=== PATIENT | female | born 1995 | race Caucasian/White ===

== ENCOUNTER → 2017-07-23 | Outpatient (CLI) | payer BC, OTHER ==
--- NOTE | 2017-07-23 11:30 | DIAGNOSTIC IMAGING REPORT ---
EXAMINATION: PELVIC ULTRASOUND (transabdominal and endovaginal scanning) CLINICAL HISTORY: R10.2 PELVIC PAIN abnormal bleeding COMPARISON STUDY: FINDINGS: The uterus measured 54 x 37 x 32 mm. The endometrial stripe measured 6 mm. The right ovary measured 5 x 26 x 21 mm. The left ovary measured 1 6 x 25 x 16 mm. There is no ultrasonographic evidence of ovarian torsion. It should be noted that ovarian torsion can be present with normal Doppler ultrasonographic findings. There was no evidence of pathologic free pelvic fluid. IMPRESSION: Normal pelvic ultrasound. Electronically signed by: Cash Bello M.D. 07/23/2017 11:29 AM Dictated Date/Time: 07/23/2017 11:27 AM
== END | disposition home or self-care (01) ==
LOC: C.ULTRBC 10:23
PROVIDERS: ATTEND Nurse Practitioner
DX: R10.2 Pelvic and perineal pain (principal)